=== PATIENT | female | born 1970 | race African-American/Black ===

== ENCOUNTER → 2020-10-10 16:01 | Outpatient (CLI) | payer BC, SELFPAY ==
--- NOTE | ~2020-10-10 | MM_ITS ---
EXAMINATION: MM screening [facility] BI w [facility] HISTORY: Screening TECHNIQUE: Craniocaudal and mediolateral oblique 3-D tomosynthesis images were obtained and synthetic 2-D images were generated. CAD analysis was submitted and interpreted. COMPARISON: Comparison to multiple prior studies sequentially, with oldest reviewed study dated 09/30. BREAST PARENCHYMAL COMPOSITION: There are scattered areas of fibroglandular density. FINDINGS: There is no evidence of suspicious mass, calcification, or architectural distortion to sugg est malignancy in either breast. There has been no suspicious interval change. IMPRESSION: 1. No mammographic evidence of malignancy. 2. Recommend routine screening mammography in one year. BI-RADS Category 1: Negative Reviewed, dictated and finalized at location A.
== END ==
PROVIDERS: PCP Family Medicine; Visit Provider Family Medicine
DX: Z12.31 Encounter for screening mammogram for malignant neoplasm of breast (principal)
CPT/HCPCS: 77063; 77067

== ENCOUNTER 2020-11-27 00:50 | Day surgery (SDC) | payer BC, SELFPAY ==
[2020-11-15 15:30] VITALS: BMI 27.5
[2020-11-27 07:39] VITALS: BP 111/66; PULSE 74; RESP 18; TEMP 36.3; O2SAT 98; BMI 26.3
--- NOTE | 2020-11-27 07:47 | P.PNAN_ITS ---
Anes - Initial Pre Proc Eval Procedure: Operation Date: 11/27/20 08:45 Proposed Procedures p Screening Colonoscopy - Alfredo Bass MD Date/Time: 11/27/20 07:47 Surgeon: Alfredo Bass MD Pre Op Diagnosis: neoplasm screening Z12.11 Patient Data Age: 50 Gender: F Height: 1.63 m Weight: 69.6 kg Last Vital Signs Temp 36.3 C L 11/27/20 07:39 Pulse 74 11/27/20 07:39 Resp 18 11/27/20 07:39 BP 111/66 11/27/20 07:39 Pulse Ox 98 11/27/20 07:39 Allergies Allergy/AdvReac Type Severity Reaction Status Date / Time No Known Drug Allergies Allergy Unknown unknown Verified 11/27/20 07:38 Home Medications Medication Instructions Recorded Confirmed Type fluoxetine 10 mg capsule 10 mg PO DAILY #90 cap 09/15/20 11/27/20 Rx Patient hx anesthesia problems: none Family hx anesthesia problems: none Results Review: All pre-operative results and documents have been reviewed as part of the pre-operative evaluation. [facility] Past Medical History Medical History MDD (major depressive disorder), recurrent episode, moderate Surgical History Surgical History (Updated 11/27/20 @ 07:48 by Ricky Merritt MD) History of cholecystectomy Hx of tonsillectomy Family History Family History Mother Hypertension Family history of elevated blood lipids Cerebrovascular accident Family history of kidney disease, Onset Age: 82 Patient's mother is Father Family history of malignant neoplasm of brain, Onset Age: 85 Patient's father is Social History Social History Social History: Single Smoking status: Never smoker Second hand tobacco smoke exposure: No Alcohol intake: never Substance use: never Substance use type: does not use Living arrangements: with family Gender identity (if verbalized by the patient): Female Sexual Orientation (if Verbalized by the Patient): Straight or Heterosexual Spiritual care concerns: No Anes - Eval Final PreProcedure Day of Procedure 11/27/20 07:47 Patient weight: overweight Heart: regular rate and rhythm Lungs: clear to auscultation Airway: Mallampati scale class II Neurological: alert and oriented Last oral intake: >/= 8 hours ASA classification: II Emergent: no Anesthetic plan: proceed Anesthesia type and monitoring: general GIVS and standard monitoring Results Review: All pre-operative results and documents have been reviewed as part of the pre-operative evaluation. Informed Consent: The patient's anesthetic plan and its attendant risks and benefits were discussed with the patient/family/POA. Questions were solicited and answers provided to the satisfaction of the patient/family/POA.
[2020-11-27] MEDS: LACTATED RINGERS 1,000 ML 150 ML IV CONT (07:49)
--- NOTE | 2020-11-27 08:31 | PM.HPGS ---
History of Present Illness History of Present Illness Consent: Risks, benefits, and alternatives have been discussed and questions answered. Patient agrees to proceed with procedure. Chief complaint: neoplasm screening Z12.11 Narrative: oNe Bernardo is a 50 year old female here for first screening colonoscopy Review of Systems Constitutional: Constitutional: Denies headache(s) and Denies weakness Eyes: Eyes: Denies blurry vision ENT: Reports Normal hearing present, Denies headache(s) and Denies neck pain Cardiovascular: Cardiovascular: Denies chest pain and Denies dyspnea Respiratory: Respiratory: Denies dyspnea Gastrointestinal: Gastrointestinal: Reports no additional gastrointestinal complaints Genitourinary: Genitourinary: Denies dysuria Musculoskeletal: Musculoskeletal: Denies neck pain Integumentary/Breasts: Skin/Breast: Denies dry skin Neurologic: Reports Normal hearing present, Denies headache(s) and Denies weakness Psychiatric: Psychiatric: Denies anxiety Endocrine: Endocrine: Denies change in body appearance Hematologic/Lymphatic: Hematologic/Lymphatic: Denies easy bleeding Allergic/Immunologic: Allergic/Immunologic: Denies urticaria PMFSH Past Medical History Medical History MDD (major depressive disorder), recurrent episode, moderate Surgical History Surgical History (Updated 11/27/20 @ 07:48 by Ricky Merritt MD) History of cholecystectomy Hx of tonsillectomy Family History Family History Mother Hypertension Family history of elevated blood lipids Cerebrovascular accident Family history of kidney disease, Onset Age: 82 Patient's mother is Father Family history of malignant neoplasm of brain, Onset Age: 85 Patient's father is Social History Social History Social History: Single Smoking status: Never smoker Second hand tobacco smoke exposure: No Alcohol intake: never Substance use: never Substance use type: does not use Living arrangements: with family Gender identity (if verbalized by the patient): Female Sexual Orientation (if Verbalized by the Patient): Straight or Heterosexual Spiritual care concerns: No Meds Home Medications and Allergies Home Medications Medication Instructions Recorded Confirmed Type fluoxetine 10 mg capsule 10 mg PO DAILY #90 cap 09/15/20 11/27/20 Rx Allergies Allergy/AdvReac Type Severity Reaction Status Date / Time No Known Drug Allergies Allergy Unknown unknown Verified 11/27/20 07:38 Vital Signs Vital Signs - 24 hr 11/27/20 07:39 Temperature 97.3 F L Pulse Rate 74 Respiratory Rate 18 Blood Pressure 111/66 Pulse Oximetry 98 Exam Const: General: comfortable and no acute distress HENMT: General nose exam: Normal nares present Eyes: General: appearance normal, both eyes and all related structures Neck: Neck: no JVD Resp: Auscultation: clear to auscultation bilaterally Cardio: Rate: regular rate Rhythm: regular rhythm GI: Inspection: non-distended GI Palp: Yes Soft to palpation Skin: General skin exam: normal color Neuro: General: gait normal Speech: normal speech Extrem: General: normal to inspection Psych: Mental Status: mental status grossly normal Assessment and Plan Assessment and plan (1) Colon cancer screening: Code(s): Z12.11 - Encounter for screening for malignant neoplasm of colon Status: Acute Assessment and Plan: colonoscopy
[2020-11-27 08:54] VITALS: BP 103/72; PULSE 84; RESP 23; O2SAT 98
[2020-11-27 09:04] VITALS: BP 102/62; PULSE 67; RESP 26; O2SAT 98
[2020-11-27 09:14] VITALS: BP 104/69; PULSE 61; RESP 16; O2SAT 100
== END 2020-11-27 09:33 | disposition home or self-care (01) ==
PROVIDERS: PCP Family Medicine; Visit Provider Internal Medicine Gastroenterology
PROC: 0DJD8ZZ Inspection of Lower Intestinal Tract, Via Natural or Artificial Opening Endoscopic (ICD-10-PCS; CPT 45378; principal; 2020-11-27 08:45)
DX: Z12.11 Encounter for screening for malignant neoplasm of colon (principal); K64.8 Other hemorrhoids; F32.9 Major depressive disorder, single episode, unspecified; Z90.49 Acquired absence of other specified parts of digestive tract
CPT/HCPCS: 45378; J2704; J7120

== ENCOUNTER → 2021-01-22 11:41 | Outpatient (CLI) | payer BC, SELFPAY ==
--- NOTE | ~2021-01-22 | US_ITS ---
EXAMINATION: US breast RT limited HISTORY: Palpable lump in the upper outer quadrant of the right breast near the nipple TECHNIQUE: Limited high-resolution right breast ultrasound is performed in the area of clinical se rn. FINDINGS: There appears to be a 5 mm x 2 mm hypoechoic mass in the skin of the right breast at the 11 :00 location of the nipple in the area of clinical concern. IMPRESSION: Likely focal area of skin infection/inflammation of the right breast near the nipple corresponding to the area of palpable concern. Recommend continued clinical follow-up and trial of antibiotics with f ollow-up targeted right breast ultrasound in 4-6 weeks. BI-RADS category 4, suspicious findings. Reviewed, dictated and finalized at location A. K PROFESSOR IMPRESSION: Likely focal area of skin infection/inflammation of the right breast near the n ipple corresponding to the area of palpable concern. Recommend continued clinic al follow-up and trial of antibiotics with follow-up targeted right breast ultr asound in 4-6 weeks. BI-RADS category 4, suspicious findings.
== END ==
PROVIDERS: PCP Family Medicine; Visit Provider Family Medicine
DX: N63.11 Unspecified lump in the right breast, upper outer quadrant (principal)
CPT/HCPCS: 76642

== ENCOUNTER → 2021-02-27 10:53 | Outpatient (CLI) | payer BC, SELFPAY ==
--- NOTE | ~2021-02-27 | US_ITS ---
US breast RT limited 02/27/2021 11:06 Indication: Follow-up right breast mass seen on ultrasound dated 01/22/2021. Procedure: High-resolution Limited ultrasound of the right breast Comparison: 01/22/2021 Findings: At 11:00 near the areola there is a hypoechoic linear structure which has diminished in siz e compared with prior examination and is located in the subcutaneous tissues. Patient states she is u nable to feel the area of abnormality currently. Impression: 1: Improved hypoechoic structure of the right breast in the subcutaneous tissues, likely sequela of p revious infectious/inflammatory process. BI-RADS CATEGORY 3-PROBABLY BENIGN FINDING RECOMMENDATION: Six-month follow-up limited right breast ultrasound recommended. Reviewed, dictated and finalized at location A. OR TECHNICAL WRITER Impression: 1: Improved hypoechoic structure of the right breast in the subcutaneous tissue s, likely sequela of previous infectious/inflammatory process. BI-RADS CATEGORY 3-PROBABLY BENIGN FINDING RECOMMENDATION: Six-month follow-up limited right breast ultrasound recommended .
== END ==
PROVIDERS: PCP Family Medicine; Visit Provider Nurse Practitioner Gerontology
DX: N63.10 Unspecified lump in the right breast, unspecified quadrant (principal); R92.8 Other abnormal and inconclusive findings on diagnostic imaging of breast
CPT/HCPCS: 76642

== ENCOUNTER 2022-07-01 15:00 | Outpatient (CLI) | payer OTHER, SELFPAY ==
--- NOTE | ~2022-07-01 | MM_ITS ---
EXAMINATION: MM screening [facility] BI w [facility] HISTORY: Screening mammogram TECHNIQUE: Craniocaudal and mediolateral oblique 3-D tomosynthesis images were obtained and synthetic 2-D images were generated. CAD analysis was submitted and interpreted. COMPARISON: 10/10/2020, 12/26/2018, 05/16/2017 BREAST PARENCHYMAL COMPOSITION: There are scattered areas of fibroglandular density. FINDINGS: No suspicious mass, calcification, or architectural distortion are identified in either leidy ast to suggest malignancy. There has been no suspicious interval change. IMPRESSION: 1. No mammographic evidence of malignancy. 2. Recommend routine screening mammography in one year. BI-RADS Category 1: Negative Reviewed, dictated and finalized at location A.
== END 2022-07-01 15:01 | disposition home or self-care (01) ==
LOC: ANHIMG 15:00
PROVIDERS: PCP Family Medicine; Visit Provider Family Medicine
DX: Z12.31 Encounter for screening mammogram for malignant neoplasm of breast (principal)
CPT/HCPCS: 77063; 77067

== ENCOUNTER 2022-11-28 19:03 | Emergency (ER) | payer OTHER, SELFPAY ==
--- NOTE | ~2022-11-28 | XR_ITS ---
EXAMINATION: XR shoulder LT min 2V INDICATION: Left shoulder pain TECHNIQUE: Three views of the left shoulder are submitted. COMPARISON: None FINDINGS: There is anterior and inferior dislocation of the humeral head with respect to the glenoid. There is a questionable Hill-Sachs deformity in the upper outer aspect of the humeral head. Mild ost eoarthritis is noted at the acromioclavicular joint. Soft tissues are unremarkable. IMPRESSION: 1. Anterior and inferior dislocation of the humeral head with respect to the glenoid. Reviewed, dictated and finalized at location F. IMPRESSION: 1. Anterior and inferior dislocation of the humeral head with respect to the gl enoid.
--- NOTE | ~2022-11-28 | XR_ITS ---
EXAMINATION: XR shoulder LT min 2V INDICATION: Post reduction TECHNIQUE: Two views of the left shoulder are submitted. COMPARISON: 2049 hours FINDINGS: The previously described glenohumeral dislocation appears to be reduced. Mild deformity is seen at the superolateral aspect of the humeral head. Soft tissues are unremarkable. IMPRESSION: 1. Reduced glenohumeral dislocation. 2. Possible Hill-Sachs deformity of the humeral head. Reviewed, dictated and finalized at location F.
--- NOTE | ~2022-11-28 | CT_ITS ---
EXAMINATION: CT shoulder LT wo con DATE: 11/28/2022 23:55 INDICATION: Left shoulder pain and dislocation TECHNIQUE: Computed tomography (CT) of the left shoulder was performed without intravenous contrast. The dose-length product (DLP) was 185.16 mGy-cm. Automated exposure control and iterative reconstruct ion technique were employed. COMPARISON: None FINDINGS: The previously described glenohumeral dislocation has been reduced. There is deformity at t he superolateral aspect of the humeral head, consistent with a Hill-Sachs fracture. There is a fractu re at the inferior margin of the glenoid rim. There is also a possible fracture at the tip of the cor acoid process. No additional fracture is identified. There is mild osteoarthritis at the acromioclavi cular joint. IMPRESSION: 1. Reduced glenohumeral dislocation. 2. Hill-Sachs fracture. 3. Fracture at the inferior margin of the glenoid rim. 4. Probable nondisplaced coracoid process fracture. Reviewed, dictated and finalized at location F.
[2022-11-28 19:55] VITALS: BP 98/58; PULSE 96; RESP 18; O2SAT 100
--- NOTE | 2022-11-28 20:36 | ED.UPPEXIN ---
HPI - Extremity Injury (Upper) General Chief Complaint: Extremity Injury, Upper <Ellyn Chapman PA-C - Last Filed: 11/29/22 02:54> Stated Complaint: fall, left shoulder pain <Ellyn Chapman PA-C - Last Filed: 11/29/22 02:54> Time Seen by Provider: 11/28/22 20:12 <Ellyn Chapman PA-C - Last Filed: 11/29/22 02:54> History of Present Illness HPI narrative: 52-year-old female reports for evaluation for left shoulder pain after fall that occurred 1 hour prior to arrival. Patient states a dog came out of nowhere and blindsided so she began running and tripped and fell on her left shoulder. She is reporting with an obvious shoulder deformity and pain. She denies hitting her head or LOC. She denies other injuries acquired. <Ellyn Chapman PA-C - Last Filed: 11/29/22 02:54> Related Data Allergies/Adverse Reactions: Allergies Allergy/AdvReac Type Severity Reaction Status Date / Time No Known Drug Allergies Allergy Unknown unknown Verified 11/29/22 02:48 <Ellyn Chapman PA-C - Last Filed: 11/29/22 02:54> Review of Systems Review of Systems: CONSTITUTIONAL: Denies fever, chills EYES: Denies visual changes, redness, or discharge. ENT: Denies rhinorrhea, congestion, sore throat, or otalgia. CARDIOVASCULAR: Denies chest pain, palpitations, or edema. RESPIRATORY: Denies cough or dyspnea. GASTROINTESTINAL: Denies abdominal pain, nausea, vomiting, or diarrhea. GENITOURINARY: Denies dysuria or hematuria. SKIN: Denies rash or itching. MUSCULOSKELETAL: See HPI NEUROLOGIC: Denies headache, numbness, dizziness, or weakness. PSYCHIATRIC: Denies anxiety or depression. <Ellyn Chapman PA-C - Last Filed: 11/29/22 02:54> PMFSH Past Medical History Medical History: Medical History MDD (major depressive disorder), recurrent episode, moderate <Ellyn Chapman PA-C - Last Filed: 11/29/22 02:54> Surgical History Surgical History: Surgical History History of cholecystectomy Hx of tonsillectomy <Ellyn Chapman PA-C - Last Filed: 11/29/22 02:54> Family History Family History: Family History Mother Hypertension Family history of elevated blood lipids Cerebrovascular accident Family history of kidney disease, Onset Age: 82 Patient's mother is Father Family history of malignant neoplasm of brain, Onset Age: 85 Patient's father is <Ellyn Chapman PA-C - Last Filed: 11/29/22 02:54> Social History Social History: Social History Social History: Single Smoking status: Never smoker Second hand tobacco smoke exposure: No Alcohol intake: never Substance use: never Substance use type: does not use Living arrangements: with family Occupation/Education: occupation Gender identity (if verbalized by the patient): Female Sexual Orientation (if Verbalized by the Patient): Straight or Heterosexual Spiritual care concerns: No <Ellyn Chapman PA-C - Last Filed: 11/29/22 02:54> Exam Narrative: GENERAL: Well-appearing, in no acute distress. HEAD: Normocephalic EYES: PERRLA NECK: Supple. No midline cervical spinous tenderness, step-offs or deformities. BACK: No thoracolumbar spinous tenderness, step-offs or deformities. CHEST: No respiratory distress. Clear to auscultation, no adventitious breath sounds. HEART: Regular rate and rhythm. No murmur heard. Normal peripheral pulses. EXTREMITIES: Tenderness and deformity to L shoulder. No tenderness to remainder of LUE, RUE, BLE. 2+ Radial pulse. Sensation intact throughout. Median, radial and ulner nerves intact. SKIN: Warm, dry, no rash. NEURO: No focal deficits. Alert and oriented x3. PSYCH: Normal mood and affect.
[2022-11-28] MEDS: HYDROcodone/acetaminophen (*CRX) 5-325 MG TABLET 1 TAB PO (20:43)
[2022-11-28] MEDS: HYDROmorphone HCL INJ (*CRX) 1 MG/ML SYR 0.5 MG IV PUSH (21:50)
[2022-11-28] MEDS: SODIUM CHLORIDE 0.9% IV 1,000 ML 999 ML IV CONT (21:51)
[2022-11-28] MEDS: ONDANSETRON INJ 4 MG/2 ML VIAL IV PUSH (22:36)
[2022-11-28 22:45] VITALS: BP 121/85; PULSE 93; O2SAT 95
[2022-11-28 23:05] VITALS: BP 117/79; PULSE 90; RESP 18; O2SAT 96
[2022-11-28 23:07] VITALS: BP 110/71; BP 127/77; PULSE 98; PULSE 99; RESP 18; RESP 28; O2SAT 96; O2SAT 98
--- NOTE | 2022-11-28 23:14 | PC.NURSE ---
2305 - time out performed 2307 - 70mg of propofol given 2308 - L shoulder back in place
[2022-11-28 23:22] VITALS: BP 122/78; PULSE 90; RESP 18; O2SAT 97
[2022-11-28] MEDS: SODIUM CHLORIDE 0.9% IV 1,000 ML 999 ML (23:36)
[2022-11-28 23:37] VITALS: BP 120/73; PULSE 89; RESP 18; O2SAT 98
[2022-11-29 00:05] VITALS: BP 126/85; PULSE 91; RESP 15; O2SAT 100
[2022-11-29 01:50] VITALS: BP 116/80; PULSE 94; RESP 18; O2SAT 98
== END 2022-11-29 01:50 | disposition home or self-care (01) ==
PROVIDERS: Emergency Provider Physician Assistant; PCP Family Medicine
DX: S42.292A Other displaced fracture of upper end of left humerus, initial encounter for closed fracture (principal); S42.142A Displaced fracture of glenoid cavity of scapula, left shoulder, initial encounter for closed fracture; S42.135A Nondisplaced fracture of coracoid process, left shoulder, initial encounter for closed fracture; Z90.49 Acquired absence of other specified parts of digestive tract; W01.0XXA Fall on same level from slipping, tripping and stumbling without subsequent striking against object, initial encounter; Y93.02 Activity, running
CPT/HCPCS: 23650; 73030; 73200; 73564; 96374; 96375; 99284; 99285; A9270; J1170; J2405; J7030

== ENCOUNTER 2022-11-29 02:33 | Emergency (ER) | payer OTHER, SELFPAY ==
--- NOTE | ~2022-11-29 | XR_ITS ---
EXAMINATION: XR knee LT min 4V DATE: 11/29/2022 03:38 INDICATION: Left knee pain. Fall. TECHNIQUE: 5 views of left knee were obtained. COMPARISON: None. FINDINGS: Bone alignment is normal. No fracture. There is mild osteoarthritis of medial and lateral c ompartments. No knee joint effusion. IMPRESSION: 1. Mild left knee osteoarthritis. Reviewed, dictated and finalized at location E.
--- NOTE | ~2022-11-29 | XR_ITS ---
EXAMINATION: XR shoulder LT min 2V DATE: 11/29/2022 03:10 INDICATION: Left shoulder pain. TECHNIQUE: 4 views of left shoulder were obtained. COMPARISON: Left shoulder radiographs 11/28/2022 FINDINGS: Bone alignment is normal. No fracture. There is mild osteoarthritis of glenohumeral joint a nd acromioclavicular joint. IMPRESSION: 1. Mild polyarticular osteoarthritis. Reviewed, dictated and finalized at location E.
[2022-11-29 02:37] VITALS: BP 128/73; PULSE 106; RESP 20; TEMP 37.1; O2SAT 100
--- NOTE | 2022-11-29 03:49 | ED.GENADULT ---
HPI - General Adult General Chief complaint: Extremity Problem,Nontraumatic Stated complaint: shoulder dislocation Time Seen by Provider: 11/29/22 03:12 History of Present Illness HPI narrative: Patient 52-year-old female presents emerged from with complaint of recheck of the left shoulder. Patient was seen in the emergency department earlier this evening and had a shoulder dislocation that was reduced patient did have a glenoid fracture within his well patient states that she was looking at her shoulder in the mirror and did not look quite right so decided to come back to the emergency department for reevaluation incidentally the patient also states that her her left knee was hurting as well and wanted that evaluated. Related Data Allergies Allergy/AdvReac Type Severity Reaction Status Date / Time No Known Drug Allergies Allergy Unknown unknown Verified 11/29/22 02:48 Review of Systems Review of Systems: A 10 system review of systems was completed on the patient and is negative except for what is stated in the HPI. Nursing and ancillary documentation was reviewed. PMFSH Past Medical History Medical History MDD (major depressive disorder), recurrent episode, moderate Surgical History Surgical History History of cholecystectomy Hx of tonsillectomy Family History Family History Mother Hypertension Family history of elevated blood lipids Cerebrovascular accident Family history of kidney disease, Onset Age: 82 Patient's mother is Father Family history of malignant neoplasm of brain, Onset Age: 85 Patient's father is Social History Social History Social History: Single Smoking status: Never smoker Second hand tobacco smoke exposure: No Alcohol intake: never Substance use: never Substance use type: does not use Living arrangements: with family Occupation/Education: occupation Gender identity (if verbalized by the patient): Female Sexual Orientation (if Verbalized by the Patient): Straight or Heterosexual Spiritual care concerns: No Exam Narrative: GENERAL: Well-appearing, well-nourished, and in no acute distress. HEAD: Normocephalic, atraumatic. EYES: PERRLA and EOMI. ENT: Nares clear, no rhinorrhea or epistaxis. Mucous membranes moist. NECK: Supple. CHEST: Clear to auscultation. No respiratory distress. HEART: Regular rate and rhythm. No murmur heard. Normal peripheral pulses. ABDOMEN: Soft, nontender, nondistended, normal active bowel sounds. EXTREMITIES: Normal range of motion. The humeral head is palpable in the correct location mild tenderness to palpation in the left no edema. SKIN: Warm, dry, no rash. NEURO: No focal deficits. Alert and oriented x3. PSYCH: Normal mood and affect. Course Vital Signs Vital signs: Vital Signs Temperature 37.1 C 11/29/22 02:37 Pulse Rate 106 H 11/29/22 02:37 Respiratory Rate 20 11/29/22 02:37 Blood Pressure 128/73 11/29/22 02:37 Pulse Oximetry 100 11/29/22 02:37 Oxygen Delivery Room Air 11/29/22 02:37 Temperature 37.1 C 11/29/22 02:37 Pulse Rate 106 H 11/29/22 02:37 Respiratory Rate 20 11/29/22 02:37 Blood Pressure 128/73 11/29/22 02:37 Pulse Oximetry 100 11/29/22 02:37 Oxygen Delivery Room Air 11/29/22 02:37 Medical Decision Making [facility] Narrative Medical decision making narrative: Differential diagnosis includes occult fracture of the left lowerextremity redislocation of the left shoulder Plan: X-rays of the left shoulder were obtained which showed no evidence of dislocation, plain film x-rays of the left knee were obtained which showed no evidence of fracture. Patient was instructed to follow-u
== END 2022-11-29 04:10 | disposition home or self-care (01) ==
PROVIDERS: Emergency Provider Emergency Medicine; PCP Family Medicine
DX: S49.92XD Unspecified injury of left shoulder and upper arm, subsequent encounter (principal); M25.562 Pain in left knee; M17.12 Unilateral primary osteoarthritis, left knee; M19.012 Primary osteoarthritis, left shoulder; X58.XXXD Exposure to other specified factors, subsequent encounter
CPT/HCPCS: 73030; 73564; 99284

== ENCOUNTER 2023-08-13 16:19 | Outpatient (CLI) | payer OTHER, SELFPAY ==
--- NOTE | ~2023-08-13 | MM_ITS ---
EXAMINATION: MM screening [facility] BI w [facility] HISTORY: Screening TECHNIQUE: Craniocaudal and mediolateral oblique 3-D tomosynthesis images were obtained and synthetic 2-D images were generated. CAD analysis was submitted and interpreted. COMPARISON: Comparison to multiple prior studies sequentially, with oldest reviewed study dated 09/30. BREAST PARENCHYMAL COMPOSITION: Not dense: There are scattered areas of fibroglandular density. FINDINGS: There is no evidence of suspicious mass, calcification, or architectural distortion to sugg est malignancy in either breast. There has been no suspicious interval change. IMPRESSION: 1. No mammographic evidence of malignancy. 2. Recommend routine screening mammography in one year. BI-RADS Category 1: Negative Reviewed, dictated and finalized at location B.
== END 2023-08-13 16:20 | disposition home or self-care (01) ==
LOC: ANHIMG 16:25
PROVIDERS: PCP Family Medicine; Visit Provider Family Medicine
DX: Z12.31 Encounter for screening mammogram for malignant neoplasm of breast (principal)
CPT/HCPCS: 77063; 77067